=== PATIENT | female | born 1965 | race Caucasian/White ===

== ENCOUNTER 2019-08-06 08:05 | Emergency (ER) | payer MEDICARE ==
[~2019-08-06] VITALS: Ht 177.8 cm; Wt 76.2 kg
--- NOTE | 2019-08-06 08:48 | NUR ---
ADMINISTRATIVE SUPPORT TECHNICIAN: PT TO ROOM FROM LOBBY
--- NOTE | 2019-08-06 09:01 | NUR ---
PT HAS CO OF RESPIRATORY INFECTION INCLUDING COUGH, SORE THROAT. STARTED FEW DAYS AGO. BEEN TAKING OTC COUGH MEDICINE. PT IS NOT IN RESP DISTRESS, PT AMBULATED TO BATHROOM W STEADY GATE.
[2019-08-06] MEDS ORDERED: SODIUM CHLORIDE 0.9% 1,000ML IVBOLUS ONE (09:30)
[2019-08-06] MEDS ORDERED: AZITHROMYCIN 500 MG in SODIUM CHLORIDE 0.9% 250 ML IV ONE (09:30)
[2019-08-06] MEDS ORDERED: CEFTRIAXONE PMX 1GM/50ML 50 ML IVPB ONE (09:30)
[2019-08-06] MEDS ORDERED: SODIUM CHLORIDE FLUSH 10ML SYR IVF ONE (09:30)
[2019-08-06] MEDS ORDERED: CEFTRIAXONE PMX 1GM/50ML 50 ML ONE (09:58)
--- NOTE | 2019-08-06 10:00 | NUR ---
BLOOD CULTURES IN PROCESS, EKG AT BEDSIDE. WILL START ABX ONCE COMPLETED
[2019-08-06 10:02] LABS: BASOPHILS # (AUTO) 0.04 x10^3/uL (0-0.1); BASOPHILS % (AUTO) 0 % (0-1); EOSINOPHILS # (AUTO) 0.27 x10^3/uL (0-0.4); EOSINOPHILS % (AUTO) 2 % (1-7); LYMPHOCYTES # (AUTO) 2.02 x10^3/uL (1-3.4); LYMPHOCYTES % (AUTO) 14 % (22-44); MD NO; MEAN CORPUSCULAR HEMOGLOBIN 30.9 pg (27.0-34.8); MEAN CORPUSCULAR HGB CONC 33.6 g/dL (32.4-35.8); MEAN CORPUSCULAR VOLUME 91.9 fL (80-100); MEAN PLATELET VOLUME 8.2 fL (7.4-10.4); MONOCYTES % (AUTO) 6 % (2-9); NEUTROPHILS # (AUTO) 11.25 x10^3/uL (1.8-6.8); NEUTROPHILS % (AUTO) 78 % (42-75); PLATELET COUNT 287 x10^3/uL (130-400); RED BLOOD COUNT 4.25 x10^6/uL (3.82-5.3); RED CELL DISTRIBUTION WIDTH 13.8 % (9.6-15.2)
[2019-08-06 10:05] LABS: ALANINE AMINOTRANSFERASE 28 U/L (12-78); ALBUMIN 3.7 g/dL (3.4-5.0); ANION GAP 8 mmol/L (5-15); CALCIUM 8.7 mg/dL (8.5-10.1); CHLORIDE 105 mmol/L (98-107); CREATININE 0.72 mg/dL (0.55-1.02)
[2019-08-06 10:07] LABS: ALKALINE PHOSPHATASE 122 U/L (45-117); BILIRUBIN,TOTAL 0.5 mg/dL (0.2-1.0); TOTAL PROTEIN 7.5 g/dL (6.4-8.2)
--- NOTE | 2019-08-06 10:56 | NUR ---
GIVEN MEAL TRAY. ABX INFUSING. VS STABLE. NO NEEDS AT THIS TIME
[2019-08-06 11:07] VITALS: BP 130/79
--- NOTE | 2019-08-06 11:08 | NUR ---
PT AMUBLATED TO BATHROOM W STEADY GATE.
--- NOTE | 2019-08-06 12:38 | NUR ---
PT UPSET "STATES THE DR DIDNT CARE AND I HAVE ASKED TO SPEAK W SOCIAL MANY TIMES" PT HAS NOT ASKED RN TO SPEAK W MEDICAL MICROBIOLOGIST AND DEMANDING RECORDS. RN EXPLAINED SHE HAS TO REQUEST RECORDS.
--- NOTE | 2019-08-06 12:40 | NUR ---
Patient/Caregiver given discharge instructions and they have confirmed that they understand the instructions. Patient ambulatory with steady gait.
[2019-08-12] MEDS ORDERED: LORA2TAB99 PO (10:48)
[2019-08-12] MEDS ORDERED: BUPR150T6 PO (10:50)
[2019-08-12] MEDS ORDERED: OMEP20CA14 PO (10:50)
[2019-08-12] MEDS ORDERED: ZOLP5TAB PO (10:50)
[2019-08-12] MEDS ORDERED: FLUO60TA PO (10:50)
[2019-08-15] MEDS ORDERED: QUET25TA7 PO (13:45)
[2019-08-15] MEDS ORDERED: BUPR150T73 PO (13:45)
[2019-08-15] MEDS ORDERED: QUET100T PO (13:45)
[2019-08-15] MEDS ORDERED: FLUO20CA8 PO (13:45)
== END 2019-08-06 12:42 | disposition home or self-care (01) ==
LOC: ED 10:29
DX: J15.9 Unspecified bacterial pneumonia (principal); Z88.2 Allergy status to sulfonamides
CPT/HCPCS: 36415; 71046; 80053; 83605; 84145; 85025; 87040; 93005; 96365; 96375; 99284; J0456; J0696; J7030; J7050